=== PATIENT | female | born 1995 | race Caucasian/White ===

== ENCOUNTER 2020-06-18 20:05 | Emergency (ER) | payer BC, SELFPAY ==
[2020-06-18 20:07] VITALS: BP 136/74; PULSE 104; RESP 16; TEMP 36.3; O2SAT 98
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
[2020-06-18] MEDS: SILVER SULFADIAZINE 1% CR 50 GM JAR (*BKC) 1 APPLIC TOPICAL (20:47)
[2020-06-18] MEDS: oxyCODONE/ACETAMINOPHEN 5-325 MG TABLET 1 TABLET PO (20:47)
[2020-06-18 20:56] VITALS: BP 140/70; PULSE 90; RESP 20; TEMP 36.6; O2SAT 100
== END 2020-06-18 20:57 | disposition home or self-care (01) ==
PROVIDERS: Emergency Provider Emergency Medicine
DX: T23.242A Burn of second degree of multiple left fingers (nail), including thumb, initial encounter (principal); T31.0 Burns involving less than 10% of body surface; X15.3XXA Contact with hot saucepan or skillet, initial encounter
CPT/HCPCS: 16020; 99283; A9270